=== PATIENT | female | born 1995 | race Caucasian/White ===

== ENCOUNTER 2019-02-13 11:18 | Emergency (ER) | payer OTHER ==
[~2019-02-13] VITALS: Ht 165.1 cm; Wt 71.7 kg
[2019-02-13] MEDS ORDERED: LANTUS SOL100 UNIT/1 (11:53)
[2019-02-13] MEDS ORDERED: SYNTHROID75 MCG (11:54)
[2019-02-13] MEDS ORDERED: JENTADUETO XR1 EAC1 (11:54)
[2019-02-13] MEDS ORDERED: DICLOFENAC SODI75 MG PO (18:23)
== END 2019-02-13 18:33 | disposition home or self-care (01) ==
LOC: ER 11:18
DX: S93.491A Sprain of other ligament of right ankle, initial encounter (principal); X37.1XXA Tornado, initial encounter; Y93.89 Activity, other specified; Y92.89 Other specified places as the place of occurrence of the external cause; Y99.8 Other external cause status

== ENCOUNTER 2021-11-09 09:06 | Emergency (ER) | payer OTHER ==
[~2021-11-09] VITALS: Ht 162.6 cm; Wt 63.5 kg
[~2021-11-09 09:06] MED LIST: DICLOFENAC SODI75 MG PO; JENTADUETO XR1 EAC1; LANTUS SOL100 UNIT/1; SYNTHROID75 MCG
== END 2021-11-09 09:34 | disposition home or self-care (01) ==
LOC: ER 09:06
DX: E11.9 Type 2 diabetes mellitus without complications (principal); Z79.4 Long term (current) use of insulin; R53.81 Other malaise

== ENCOUNTER 2022-06-12 13:50 | Emergency (ER) | payer OTHER ==
[~2022-06-12] VITALS: Ht 165.1 cm; Wt 69.9 kg
== END 2022-06-12 17:54 | disposition home or self-care (01) ==
LOC: ER 13:50
DX: S92.215A Nondisplaced fracture of cuboid bone of left foot, initial encounter for closed fracture (principal); W19.XXXA Unspecified fall, initial encounter; Y93.9 Activity, unspecified; Y92.89 Other specified places as the place of occurrence of the external cause; Y99.9 Unspecified external cause status; Z20.822 Contact with and (suspected) exposure to COVID-19; E11.9 Type 2 diabetes mellitus without complications; Z79.4 Long term (current) use of insulin; Z79.84 Long term (current) use of oral hypoglycemic drugs; E03.9 Hypothyroidism, unspecified